=== PATIENT | female | born 1980 | race Caucasian/White ===

== ENCOUNTER 2020-08-10 17:52 | Emergency (ER) | payer BC ==
[2020-08-10 18:00] VITALS: PULSE 61
--- NOTE | 2020-08-10 18:04 | EDM.PDOC ---
ED HPI GENERAL MEDICAL PROBLEM - General Chief Complaint: Allergic Reaction Stated Complaint: FACIAL SWELLING Time Seen by Provider: 08/10/20 18:04 Source of Information: Reports: Patient History Limitations: Reports: No Limitations - History of Present Illness INITIAL COMMENTS - FREE TEXT/NARRATIVE: Mayra, 40-year-old female, presents with rash to the upper extremities and torso with associated edema. She also has edema to the facial features. States onset at roughly 0700 yesterday 09 August, noted in the left jaw region radiating across to the right. Today left upper lip radiating to the right lip and involving more of the facial features as time has gone on. Used Benadryl with no significant improvement. 3 weeks with infant being breast-fed 100%. Denies any exposures, activities, nor intake that would precipitate this. Has been taking labetalol since delivery as she experienced hypertension and had a history of preeclampsia with previous . 1 blood pressure was elevated at this time she was admitted to the [facility] facility and induced the following day for a spontaneous vaginal delivery. Received 1 dose of magnesium at that time but did not follow through on the need of a drip/infusion. Onset Date: 08/09/20 Onset Time: 07:00 Duration: Hour(s):, Getting Worse Location: Reports: Head, Face, Neck, Chest, Upper Extremity, Left, Upper Extremity, Right Quality: Reports: Pressure Severity: Moderate Improves with: Reports: None Worsens with: Reports: Other (time of incident occurence) Associated Symptoms: Reports: No Other Symptoms. Denies: Cough, Fever/Chills, Nausea/Vomiting, Shortness of Breath Bilateral Wrist Pain Score (Numeric/FACES): 5 - Related Data Allergies Allergy/AdvReac Type Severity Reaction Status Date / Time acetaminophen [From Percocet] Allergy Hives Verified 08/10/20 17:56 codeine Allergy Hives Verified 08/10/20 17:56 erythromycin base Allergy Vomiting Verified 08/10/20 17:56 hydrocodone bitartrate Allergy Hives Verified 08/10/20 17:56 [From Vicodin] oxycodone HCl [From Percocet] Allergy Hives Verified 08/10/20 17:56 Home Meds: Home Meds [id number]/Ferrous Fumarate/FA [Gs Vitamins Tablet] 1 each PO DAILY 05/24/16 [History] Acetaminophen [Acetaminophen Extra Strength] 500 - 1,000 mg PO Q6H PRN 03/06/16 [History] Ibuprofen 800 mg PO TID PRN 04/28/17 [History] Labetalol [Normodyne] 200 mg PO DAILY 08/10/20 [History] Past Medical History HEENT History: Reports: Impaired Vision, Other (See Below) Other HEENT History: contacts Cardiovascular History: Reports: Hypertension Respiratory History: Reports: None Genitourinary History: Reports: None 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 Constitutional: Denies: Fever HEENT: Denies: Throat Swelling Respiratory: Denies: Shortness of Breath, Wheezing, Cough Cardiovascular: Denies: Chest Pain, Blood Pressure Problem (maintained with current therpay regimen) Endocrine: Reports: No Symptoms GI/Abdominal: Reports: No Symptoms : Reports: No Symptoms Musculoskeletal: Reports: No Symptoms Skin: Reports: Pruritis, Urticaria, Other (swelling) Neurological: Reports: No Symptoms Psychiatric: Reports: No Symptoms Hematologic/Lymphatic: Reports: No Symptoms Immunologic: Reports: Other (anaphylactoid like response, mild angioedema.) ED EXAM GENERAL NO PERIP PULSE - Physical Exam Exam: See Below Text/Narrative:: Alert, oriented, with no distress, PERRLA, EOM intact. There is mild edema to the facial features and forehead with no respiratory distress. There is no stridor, no wheezes, with full clear breath sounds throughout. There is no edema noted in the oropharynx and she is able to swallow secretions with no difficulty. Neck is soft supple with no tenderness, no rigidity. Thorax is clear with no wheezes nor crackles being noted. Symmetrical rise and fall of the chest with no prolonged expiratory cycle. Cardiac is regular I do not appreciate any murmur. Radial pulses correlate with apical heart rate. There is no back tenderness flank tenderness nor abdominal tenderness. There is scattered wheals to the forearms with some edema, there is some into the arms and patches to the thorax. There is no significant erythema to the facial features but distinct swelling is noted. There is no significant edema to the lower extremities that are visible with raising of her pounds legs. Her vitals are stable, O2 saturation is good, and no distress acknowledged. Course - Vital Signs Last Recorded V/S: Last Vital Signs Temp 96.6 F L 08/10/20 17:59 Pulse 61 08/10/20 18:07 Resp 16 08/10/20 18:07 BP 126/73 08/10/20 18:07 Pulse Ox 100 08/10/20 18:07 - Orders/Labs/Meds Orders: Active Orders 24 hr Category Date Time Status CULTURE URINE [RM] Urgent Lab 08/10/20 18:12 Received Labs: Laboratory Tests 08/10/20 08/10/20 08/10/20 Range/Units 18:12 18:32 18:32 WBC 12.55 H (5.00-10.00) 10^3/uL RBC 4.00 (3.80-5.50) 10^6/uL Hgb 12.6 (12.0-16.0) g/dL Hct 37.4 (37.0-47.0) % MCV 93.5 H (82.0-92.0) fL MCH 31.5 H (27.0-31.0) pg MCHC 33.7 (32.0-36.0) g/dL RDW 12.3 (11.5-14.5) % Plt Count 524 H (150-400) 10^3/uL MPV 8.5 (7.4-10.4) fL Immature Gran % (Auto) 0.2 (0.0-5.0) % Neut % (Auto) 62.3 (50.0-70.0) % Lymph % (Auto) 25.6 (20.0-40.0) % Campbell % (Auto) 4.5 (2.0-8.0) % Eos % (Auto) 7.2 H (1.0-3.0) % Baso % (Auto) 0.2 (0.0-1.0) % Neut # (Auto) 7.81 H (2.50-7.00) 10^3/uL Lymph # (Auto) 3.21 (1.00-4.00) 10^3/uL Campbell # (Auto) 0.57 (0.10-0.80) 10^3/uL Eos # (Auto) 0.90 H (0.10-0.30) 10^3/uL Baso # (Auto) 0.03 (0.00-0.10) 10^3/uL Immature Gran # (Auto) 0.03 (0.00-0.50) 10^3/uL Sodium 144 (136-145) mmol/L Potassium 4.0 (3.5-5.1) mmol/L Chloride 106 (98-107) mmol/L Carbon Dioxide 25.8 (21.0-32.0) mmol/L Anion Gap 16.2 H (5-15) mmol/L BUN 29 H (7-18) mg/dL Creatinine 1.10 (0.51-1.17) mg/dL Est Cr Clr Drug Dosing 56.24 mL/min Estimated GFR (MDRD) 55 mL/min Glucose 99 (70-140) mg/dL Calcium 9.5 (8.7-10.3) mg/dL Magnesium 2.1 (1.8-2.4) mg/dL Total Bilirubin 0.2 (0.2-1.0) mg/dL AST 15 (15-37) U/L ALT 21 (14-63) U/L Alkaline Phosphatase 82 (46-116) U/L Creatine Kinase 80 (26-276) U/L Total Protein 6.9 (6.4-8.2) g/dL Albumin 3.16 L (3.40-5.00) g/dL Specimen Type Urincc Urine Color Yellow (YELLOW) Urine Appearance Slightly cloudy H (CLEAR) Urine pH 7.5 (5.0-9.0) Ur Specific [place] 1.020 (1.005-1.030) Urine Protein Negative (NEGATIVE) mg/dL Urine Glucose (UA) Negative (NEGATIVE) mg/dL Urine Ketones Negative (NEGATIVE) mg/dL Urine Occult Blood Negative (NEGATIVE) Urine Nitrite Negative (NEGATIVE) Urine Bilirubin Negative (NEGATIVE) Urine Urobilinogen 0.2 (0.2-1.0) E.U./dL Ur Leukocyte Esterase Moderate H (NEGATIVE) Urine RBC 0-5 (0-5) /HPF Urine WBC 75-100 H (0-5) /HPF Ur Epithelial Cells Few /LPF Urine Bacteria Moderate H (NONE TO FEW) /HPF Meds: Medications Discontinued Medications Generic Name Dose Route Start Last Admin Trade Name Kenny PRN Reason Stop Dose Admin Methylprednisolone Sodium Succinate 125 mg 08/10/20 19:14 Methylprednisolone Sodium Succinate 125 Mg/2 Ml Sdv IM 08/10/20 19:15 ONETIME ONE Departure - Departure Time of Disposition: 19:13 Disposition: Home, Self-Care 01 Condition: Good Clinical Impression: Rash Anaphylactoid reaction Qualifiers: Encounter type: initial encounter Qualified Code(s): T78.2XXA - Anaphylactic shock, unspecified, initial encounter Angioedema Qualifiers: Encounter type: initial encounter Qualified Code(s): T78.3XXA - Angioneurotic edema, initial encounter - Discharge Information *PRESCRIPTION DRUG MONITORING PROGRAM REVIEWED*: Not Applicable *COPY OF PRESCRIPTION DRUG MONITORING REPORT IN PATIENT EBONY: Not Applicable Instructions: Angioedema, [id number], Rash, Adult, [id number] Referrals: PCP,None [Primary Care Provider] - Forms: ED Department Discharge Additional Instructions: Lab work shows nothing significant that would not be in the expectations of stage. Eosinophils are slightly elevated which can be attributed to a allergen type response. With your blood pressure showing very good reading on your visit here, I would recommend holding your labetalol and diligently checking your blood pressure to see if it remains in a normotensive range. In the event that there is anaphylactoid/angioedema situation resolves by holding of the medication, it would then prove most likely that being the causative agent. In the event your blood pressure starts to creep back up and you need to resume the labetalol, if that is the causative agent, the response should be similar or possibly more aggressive than this event. Maintaining good fluid hydration and dietary intake. The steroid injection will elevate your blood sugars for the next 24 to 48 hours and may have a slight effect on your milk production. Follow-up with your SURVEYING OR SPATIAL SCIENCE TECHNICIAN or follow-up at the clinic of your choice for recheck. In the event this becomes more severe consider returning to the emergency department as needed. Sepsis Event Note (ED) - Evaluation Sepsis Screening Result: No Definite Risk - Focused Exam Vital Signs: Vital Signs Temp Pulse Resp BP Pulse Ox 08/10/20 18:07 61 16 126/73 100 08/10/20 17:59 96.6 F L 61 16 133/83 99 - Problem List & Annotations (1) Rash SNOMED Code(s): 141589136, 575416844 Code(s): R21 - RASH AND OTHER NONSPECIFIC SKIN ERUPTION Status: Acute Priority: High Current Visit: Yes (2) Anaphylactoid reaction SNOMED Code(s): 32379719 Code(s): T78.2XXA - ANAPHYLACTIC SHOCK, UNSPECIFIED, INITIAL ENCOUNTER Status: Acute Priority: High Current Visit: Yes Qualifiers: Encounter type: initial encounter Qualified Code(s): T78.2XXA - Anaphylactic shock, unspecified, initial encounter (3) Angioedema SNOMED Code(s): 15260163 Code(s): T78.3XXA - ANGIONEUROTIC EDEMA, INITIAL ENCOUNTER Status: Acute Priority: High Current Visit: Yes Qualifiers: Encounter type: initial encounter Qualified Code(s): T78.3XXA - Angioneurotic edema, initial encounter - Problem List Review Problem List Initiated/Reviewed/Updated: Yes - My Orders Last 24 Hours: My Active Orders 08/10/20 18:12 CULTURE URINE [RM] Urgent - Assessment/Plan Last 24 Hours: My Active Orders 08/10/20 18:12 CULTURE URINE [RM] Urgent Plan: Lab work shows nothing significant that would not be in the expectations of stage. Eosinophils are slightly elevated which can be attributed to a allergen type response. With your blood pressure showing very good reading on your visit here, I would recommend holding your labetalol and diligently checking your blood pressure to see if it remains in a normotensive range. In the event that there is anaphylactoid/angioedema situation resolves by holding of the medication, it would then prove most likely that being the causative agent. In the event your blood pressure starts to creep back up and you need to resume the labetalol, if that is the causative agent, the response should be similar or possibly more aggressive than this event. Maintaining good fluid hydration and dietary intake. The steroid injection will elevate your blood sugars for the next 24 to 48 hours and may have a slight effect on your milk production. Follow-up with your SURVEYING OR SPATIAL SCIENCE TECHNICIAN or follow-up at the clinic of your choice for recheck. In the event this becomes more severe consider returning to the emergency department as needed.
[2020-08-10 18:07] VITALS: BP 126/73
[2020-08-10 18:58] LABS: ANION GAP 16.2 mmol/L (5-15)
[2020-08-10] MEDS ORDERED: methylPREDNISolone Sodium Succinate 125 MG/2 ML SDV IM ONE (19:14)
== END 2020-08-10 19:35 | disposition home or self-care (01) ==
LOC: KA.ED 17:52
DX: T78.3XXA Angioneurotic edema, initial encounter (principal); T78.2XXA Anaphylactic shock, unspecified, initial encounter; I10 Essential (primary) hypertension; Z88.5 Allergy status to narcotic agent; Z88.1 Allergy status to other antibiotic agents; Z88.6 Allergy status to analgesic agent
CPT/HCPCS: 36415; 80053; 81001; 82550; 83735; 85025; 87086; 96372; 99284; J2930